=== PATIENT | female | born 1975 | race Caucasian/White ===

== ENCOUNTER 2021-12-04 22:24 | Emergency (ER) | payer OTHER, SELFPAY ==
--- NOTE | ~2021-12-04 | CT_ITS ---
EXAMINATION: CT abdomen pelvis wo con EXAM DATE: 12/05/2021 00:45 INDICATION: Right lower quadrant pain, right flank pain, symptoms one day. TECHNIQUE: Spiral CT of the abdomen and pelvis was performed without contrast. Axial, coronal and s agittal images of the abdomen and pelvis were reviewed. The dose-length product (DLP) for this exami nation was 173.94 mGy-cm. The exposure was tailored according to patient size (auto mA exposure cont rol), and iterative reconstruction (ASIR) was used as additional dose reduction technique. There is no prior study for comparison. FINDINGS: The liver, spleen, adrenal glands and pancreas are unremarkable. The gallbladder is contra cted but otherwise unremarkable. 3 mm stone in a left inferior calyx. Equivocal punctate right super ior calyceal stone. No ureteral stones or hydronephrosis. The uterus is unremarkable. 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 No fat density within this. The bladder is unremarkable. There is no retrope ritoneal or pelvic lymphadenopathy. There is mild scattered arteriosclerotic disease. The appendix is normal. The stomach and small bowel are unremarkable. There is expected amount of c olonic stool. No free intraperitoneal gas. The heart is normal in size. There are no pericardial or pleural effusions. The lung bases are unremarkable. Mild to moderate lumbar spondylosis. IMPRESSION: 1. No acute intra-abdominal findings. 2. Coarse left ovarian calcification, possible small teratoma. 3. Small left nephrolithiasis. Reviewed, dictated and finalized at location A.
[2021-12-04 22:29] VITALS: BP 120/99; PULSE 85; RESP 20; TEMP 36.8; O2SAT 99
--- NOTE | 2021-12-04 23:25 | PC.NURSE ---
Pt noted to be verbally aggressive to staff stating, You all are fucking stupid. I don't care if you don't have a fucking room, I am fucking dying. I am fucking dying. Pt is walking intermittently in and out of hospital. Pt also asked to used phone and began shouting into the phone, I am fucking leaving. They are letting me and they say they have no beds. I am fucking leaving. Pt then promptly left hospital waiting room. Pt came back into hospital and asked this nurse approx 10 minutes later if she had a bed yet. This nurse clarified if she would be wanting to stay at this hospital to be seen and pt stated, Of course I want to be seen. I am in pain. I just needed to go smoke. Pt now crying and moaning in waiting room. Charge Nurse made aware
[2021-12-05 00:40] LABS: Basophils Absolute Auto 0.1 K/mm3 (0.0-0.1); Basophils Percent Auto 0.6 % (0.2-1.2); Eosinophils Absolute Auto 0.1 K/mm3 (0-0.3); Eosinophils Percent Auto 1.1 % (0-4.4); Hematocrit 42.8 % (37.0-47.0); Hemoglobin 14.2 g/dL (12.0-15.0); Immature Granulocyte Absolute 0.03 K/mm3 (0.00-0.031); Immature Granulocyte Percent A 0.3 % (0-0.5); Lymphocytes Absolute Auto 2.02 K/mm3 (0.9-3.2); Lymphocytes Percent Auto 18.1 % (18.3-44.2); Mean Corpuscular HGB Conc 33.2 g/dl (32-36); Mean Corpuscular Hemoglobin 31.9 pg (26-34); Mean Corpuscular Volume 96.2 fl (80-100); Mean Platelet Volume 9.6 fl (7.4-10.4); Monocytes Absolute Auto 1.2 K/mm3 (0.1-0.6); Monocytes Percent Auto 10.7 % (2.6-8.5); Neutrophils Absolute Auto 7.7 K/mm3 (1.3-6.7); Neutrophils Percent Auto 69.2 % (45.5-73.1); Platelet Count Result 324 k/mm3 (150-375); Red Blood Count 4.45 M/mm3 (4.2-5.4); Red Cell Distribution Width 13.5 % (11.5-14.5); White Blood Count 11.2 K/mm3 (4.5-10.0)
[2021-12-05 00:55] LABS: Add Urine Microscopic? YES; Appearance Urine Cloudy (Clear); Bacteria Urine 4+ /hpf; Bilirubin Urine Negative (Negative); Blood Urine 2+ (Negative); Calcium Oxalate Crystals Urine Present /hpf; Color Urine Amber (Yellow); Glucose Urine UA Negative (Negative); Hyaline Casts Urine 30-49 /lpf; Ketones Urine Trace mg/dL (Negative); Leukocyte Esterase Ur 2+ LEU/UL (Negative); Mucus Urine Few /lpf; Nitrate Urine Negative (Negative); Protein Urine 1+ mg/dL (Negative); Specific Grav Ur 1.026 (1.001-1.035); Squamous Epithelial Cell Urine Rare /hpf (Few); WBC Urine 21-30 /hpf
[2021-12-05 00:57] LABS: Alanine Aminotransferase 14 U/L (4-35); Albumin Level 4.7 g/dL (3.5-5.1); Alkaline Phosphatase 89 U/L (38-126); Anion Gap 8 mmol/L (8-16); Aspartate Amino Transferase 26 U/L (14-36); Bilirubin,Total 0.4 mg/dL (0.2-1.3); Blood Urea Nitrogen 16 mg/dL (7-17); Calcium 9.3 mg/dL (8.4-10.2); Carbon Dioxide 26 mmol/L (22-30); Chloride 105 mmol/L (98-107); Estimated CRCL calculation 54 ml/min; Estimated Glomerular Filt Rate > 60; Glucose 113 mg/dL (65-110); Lipase 101 U/L (23-300); Potassium 3.6 mmol/L (3.4-5.0); Sodium 139 mmol/L (137-145)
--- NOTE | 2021-12-05 01:01 | ED.ABDPAIN ---
HPI - Abdominal Pain General Chief Complaint: Abdominal Pain Stated Complaint: ABD pain Time Seen by Provider: 12/05/21 00:15 History of Present Illness HPI narrative: Patient is a 46-year-old female who presents for evaluation of acute right flank pain that radiates into her right groin. States the pain came on today and has been constant, she is unable to find a comfortable position in bed due to the pain. Denies changes after eating. She has not tried anything for her pain. Additionally reports nausea, but no vomiting. She was treated for UTI 2 weeks ago with Macrobid, but she did not finish the script because she was feeling better. No fevers, diarrhea. Related Data Allergies Allergy/AdvReac Type Severity Reaction Status Date / Time acetaminophen [From Percocet] AdvReac Headache Verified 08/13/19 10:47 codeine AdvReac Headache Verified 08/13/19 10:47 cyclobenzaprine AdvReac Headache Verified 08/13/19 10:47 [From Flexeril] oxycodone [From Percocet] AdvReac Headache Verified 08/13/19 10:47 Review of Systems Review of Systems: CONSTITUTIONAL: Denies fever, chills, or sweats. EYES: Denies visual changes, redness, or discharge. ENT: Denies rhinorrhea, congestion, sore throat, or otalgia. CARDIOVASCULAR: Denies chest pain, palpitations, or edema. RESPIRATORY: Denies cough or dyspnea. GASTROINTESTINAL: Reports nausea. Denies abdominal pain,vomiting, or diarrhea. GENITOURINARY: Denies dysuria or hematuria. SKIN: Denies rash or itching. MUSCULOSKELETAL: Reports right flank pain. NEUROLOGIC: Denies headache, numbness, or weakness. PSYCHIATRIC: Denies anxiety or depression. [facility] Social History Social History (Updated 08/13/19 @ 11:21 by Colt Jackson PA-C) Smoking status: Current every day smoker Exam Narrative: APPEARANCE: Uncomfortable appearing, moaning in pain, writhing on bed. Head normocephalic and atraumatic. EYES: PERRLA/EOMI, conjunctivae clear NOSE: No nasal drainage EARS: External ear normal in appearance THROAT: Oropharynx is clear. Mucous membranes are moist. NECK: Supple. No adenopathy, no masses. RESPIRATORY: Airway patent, respirations nonlabored. Clear to auscultation bilaterally, no rales, rhonchi, wheezing. CARDIOVASCULAR: Regular rate and rhythm without murmurs, rubs, or gallops. ABDOMINAL: Normoactive bowel sounds. Soft, nontender, nondistended. No rebound tenderness or guarding. MUSCULOSKELETAL: Right CVA tenderness. Extremities are warm and well-perfused. Moves all extremities well. No edema. NEURO: Normal speech. No focal neurologic deficits. SKIN: Skin is warm and dry. No rashes. PSYCHIATRIC: Angry affect. Course Vital Signs Vital signs: Vital Signs Temperature 98.2 F 12/04/21 22:29 Pulse Rate 85 12/04/21 22:29 Respiratory Rate 20 12/04/21 22:29 Blood Pressure 120/99 H 12/04/21 22:29 Pulse Oximetry 99 12/04/21 22:29 Temperature 98.2 F 12/04/21 22:29 Pulse Rate 84 12/05/21 02:55 Respiratory Rate 18 12/05/21 02:55 Blood Pressure 148/75 H 12/05/21 02:55 Pulse Oximetry 99 12/05/21 02:55 MDM - Abdominal Pain MDM Narrative Medical decision making narrative: 46-year-old female here with right lower abdominal pain and right-sided flank pain. Patient continually crying out and being verbally aggressive towards staff members, myself included, during stay. Increased agitation when I told her I would not give her Dilaudid for her pain. Work-up significant for leukocytosis to 11.2, urine with blood, leukocytes, hyaline casts and bacteria. Suspicious for UTI/ nephrolithiasis/pyelonephritis; preliminary CT read without evidence of pyelonephrosis or kidney stone. Provided with 15 of Toradol for pain and sent prescription for Cipro given failure of Macrobid as outpatient and CVA tenderness. Discussed finding of possible small airway disease with patient, unlikely to be causing patient's symptoms today, but advised outpatient work-up with her PCP. Lab D
[2021-12-05] MEDS: ONDANSETRON INJ 4 MG/2 ML VIAL IV PUSH (01:16)
[2021-12-05] MEDS: KETOROLAC 15 MG/ML VIAL (*BKC) IV PUSH (01:16)
[2021-12-05 01:20] VITALS: BP 146/84; PULSE 70; RESP 24; O2SAT 98
[2021-12-05 02:55] VITALS: BP 148/75; PULSE 84; RESP 18; O2SAT 99
== END 2021-12-05 02:57 | disposition home or self-care (01) ==
PROVIDERS: Emergency Provider Emergency Medicine
DX: N30.01 Acute cystitis with hematuria (principal); F17.200 Nicotine dependence, unspecified, uncomplicated; N20.0 Calculus of kidney; R93.89 Abnormal findings on diagnostic imaging of other specified body structures
CPT/HCPCS: 36415; 74176; 80053; 81001; 81025; 83690; 85025; 87077; 87086; 87088; 87186; 96374; 96375; 99284; J1885; J2405